=== PATIENT | female | born 1960 | race Caucasian/White ===

== ENCOUNTER → 2021-12-20 | Outpatient (CLI) | payer OTHER | END | disposition home or self-care (01) | LOC: EDBD → SHCH 07:48 | PROVIDERS: ATTEND Student in an Organized Health Care Education/Training Program | DX: I70.0 Atherosclerosis of aorta (principal) | CPT/HCPCS: 93978 ==

== ENCOUNTER → 2024-03-26 | Outpatient (CLI) | payer OTHER, MEDICARE | END | disposition home or self-care (01) | LOC: RAH 08:58 | PROVIDERS: ATTEND Obstetrics & Gynecology | DX: Z12.31 Encounter for screening mammogram for malignant neoplasm of breast (principal) | CPT/HCPCS: 77067 ==

== ENCOUNTER 2024-11-23 11:17 | Emergency (ER) | payer OTHER, MEDICARE ==
[~2024-11-23] VITALS: Ht 160 cm; Wt 65.8 kg
[2024-11-23 11:21] VITALS: BP 144/84; PULSE 82; RESP 20; TEMP 98.6
--- NOTE | 2024-11-23 11:42 | ERN ---
ED Note History of Present Illness Stated Complaint: TINGLING Chief Complaint: Back Pain or Injury Time Seen by MD: 11:20 Time Seen by Midlevel: 11:25 Dictation: 64-year-old female coming in complaining of mid left upper back pain radiating to her left arm and left leg. Patient states she feels shock going down her left leg. Patient states this all started in , has been to her PCP which they have given her Toradol injections and put her on p.o. prednisone for the last four days. States she does not feel any better, has a MRI scheduled for tomorrow. Denies any trauma, chest pain, shortness a breath, fever, chills, nausea, vomiting or diarrhea. Allergies: Coded Allergies: No Known Drug Allergies (Unverified Allergy, Unknown, 11/23/24) Home Meds Active Scripts Ketorolac Tromethamine (Ketorolac Tromethamine) 10 Mg Tablet, 1 TAB PO Q6HPRN PRN for pain for 5 Days, #20 TAB 0 Refills Prov:[facility] [employer] 11/23/24 Methocarbamol (Methocarbamol) 1,000 Mg Tablet, 1000 MG PO TID PRN for PAIN for 3 Days, #9 TAB Prov:GRAEME [facility] [employer] [employer] 11/23/24 Lidocaine (Lidocaine) 4 % Adh..patch, 1 PATCH TP DAILY for 10 Days, #10 PATCH 0 Refills Prov:[facility] 11/23/24 Past Medical History Past Medical History: High Cholesterol, Hypothyroid Surgical History: Appendectomy, Hysterectomy, Cholecystectomy, Other Surgical History Other: THYROID Review of System Dictation Constitutional: Negative for fever,chills, and weight loss Eyes: Negative for injury, pain,redness, and discharge ENT: Negative for injury,pain or swelling Cardiovascular: Negative for chest pain, palpitations, and edema Respiratory: Negative for shortness of breath, cough, and wheezing, Abdomen/GI: Negative for abdominal pain, nausea, vomiting, diarrhea, and constipation Back: Negative for injury and pain : Negative for injury, bleeding and discharge MS/Extremity: Negative for injury and deformity complaining of mid left back pain that radiates to her left arm and left leg Skin: Negative for rash, and discoloration Neuro: Negative for headache, weakness, numbness, tingling, and seizure Psych: Negative for suicide ideation, homicidal ideation, and hallucinations Review of Systems: was completed Initial Vital Sign VS Vital Signs Date Time Temp Pulse Resp B/P (MAP) Pulse Ox O2 Delivery O2 Flow Rate FiO2 11/23/24 11:21 98.6 82 20 144/84 100 Room Air 0 Physical Exam Dictation General: awake, alert, NAD Head/Face: Normocephalic, atraumatic Eyes: PERRL, EOMI, vision at baseline ENT: oral cavity clear, TMs clear, no signs of infection Neck: Trachea midline, supple, no nuchal rigidity Cardiovascular: RRR, normal S1/S2, No MRGs, no JVD Respiratory: CTAB, no respiratory distress, No rales or wheezes Abdomen: Soft, non-tender, non-distended, normal bowel sounds, no guarding or rebound. Skin: Warm, dry, normal turgor, no rash MS/Extremity: Pulses equal, no cyanosis, neurovascular intact, FROM Neuro: COAx4, GCS 15, strength 5/5, CN 2-12 intact, normal cerebellar exam, normal gait, Psych: Normal behavior, mood, and affect normal Results (Laboratory/Radiology) Laboratory/Radiology Laboratory Tests Test 11/23/24 11:45 White Blood Count 8.8 K/uL (4.8-10.8) Red Blood Count 4.36 MIL/uL (4.00-5.50) Hemoglobin 14.8 g/dL (12.0-16.0) Hematocrit 44.0 % (36-48) Mean Corpuscular Volume 100.9 fL (79-99) H Mean Corpuscular Hemoglobin 33.9 pg (27.0-33.0) H Mean Corpuscular Hemoglobin Concent 33.6 g/dL (32.0-36.0) Red Cell Distribution Width 12.4 % (11.0-15.5) Platelet Count 293 K/uL (130-400) Mean Platelet Volume 9.3 fL (7.5-10.5) Immature Granulocyte % (Auto) 0.3 % (0-1) Neutrophils (%) (Auto) 60.7 % (40.0-77.0) Lymphocytes (%) (Auto) 31.4 % (21.0-51.0) Monocytes (%) (Auto) 6.9 % (3.0-13.0) Eosinophils (%) (Auto) 0.5 % (0.0-8.0) Basophils (%) (Auto) 0.2 % (0.0-5.0) Neutrophils # (Auto) 5.4 K/uL (1.8-7.7) Lymphocytes # (Auto) 2.8 K/uL (1.0-4.8) Monocytes # (Auto) 0.6 K/uL (0.1-1.0) Eosinophils # (Auto) 0.04 K/uL (0.00-0.70) Basophils # (Auto) 0.02 K/uL (0.00-0.20) Absolute Immature Granulocyte (auto 0.03 K/uL (0-1) Nucleated Red Blood Cells 0.0 % (0.0-0.19) Sodium Level 142 mmol/L (136-145) Potassium Level 4.3 mmol/L (3.5-5.1) Chloride Level 107 mmol/L (101-111) Carbon Dioxide Level 25 mmol/L (21-32) Blood Urea Nitrogen 10 mg/dL (7-18) Creatinine 0.9 mg/dL (0.5-1.0) Glomerular Filtration Rate Calc 72 mL/min (>90) Random Glucose 113 mg/dL (70-105) H Total Calcium 8.4 mg/dL (8.5-10.1) L Troponin I High Sensitivity 5 ng/L (4-50) Labs Reviewed?: Yes EKG: (+) NSR, (+) WI (136), (+) QRS (47) ED Course ED Course Orders Procedure Category Date Status Time Cbc With Differential LAB 11/23/24 Complete 11:32 Basic Metabolic Panel LAB 11/23/24 Complete 11:32 Troponin I High LAB 11/23/24 Complete Sensitivity 11:32 12 Lead Ekg Tracing- EKG 11/23/24 Complete Technical 11:32 Chest 1vw RAD 11/23/24 Resulted 11:32 Lidocaine (Lidocaine PHA 11/23/24 Complete Patch 4%) 11:34 Hydrocodone/Apap PHA 11/23/24 Complete 5/325 ([place] 5/325mg) 11:34 Methocarbamol PHA 11/23/24 Complete (Methocarbamol) 11:34 Current Medications Medications (Trade) Dose Ordered Sig/[place] Route PRN Reason Start Time Stop Time Status Last Admin Dose Admin Acetaminophen/ Hydrocodone Bitart (NORco 5/325MG) 1 tab ONCE STAT PO 11/23/24 11:34 11/23/24 11:41 DC 11/23/24 11:48 Lidocaine (Lidocaine Patch 4%) 1 each ONCE STAT TP 11/23/24 11:34 11/23/24 11:41 DC 11/23/24 11:47 Methocarbamol (methoCARBamol) 1,000 mg ONCE STAT PO 11/23/24 11:34 11/23/24 11:41 DC 11/23/24 11:48 Vital Signs Date Time Temp Pulse Resp B/P (MAP) Pulse Ox O2 Delivery O2 Flow Rate FiO2 11/23/24 11:21 98.6 82 20 144/84 100 Room Air 0 Medical Decision Making MDM MDM: 64-year-old female coming in complaining of mid left upper back pain radiating to her left arm and left leg. Patient states she feels shock going down her left leg. Patient states this all started in , has been to her PCP which they have given her Toradol injections and put her on p.o. prednisone for the last four days. States she does not feel any better, has a MRI scheduled for tomorrow. Denies any trauma, chest pain, shortness a breath, fever, chills, nausea, vomiting or diarrhea.Patient has a leukocytosis, no anemia, no thrombocytopenia. Chemistry is unremarkable. Troponin is negative. EKGs did not show any ST elevations or dysrhythmias. Chest x-ray shows no acute findings. After pain medication patient states her pain went from an eight to a six and feels better. We will prescribe patient prescriptions for the muscle relaxer, Toradol, lidocaine patch. Educated patient to return to the ER if he has recurrent symptoms or worsening symptoms and to keep her appointment tomorrow with her MRI. Patient verbalized understanding, answered all questions. Differential diagnosis: ACS, pneumonia, chronic back pain Rationale: Tests considered and ordered secondary to shared decision making inc lude: Previous outside records reviewed: Old ER visits. Risk of complication and/or morbidity or mortality of patient management: None Medications-Per medication reconciliation Need for hospitalization: Patient does not meet criteria for hospitalization. Need for emergency major/minor surgery: No There are no social concerns with this patient. Prescription drug management Prescriptions will include symptomatic care Patient's prior external medical records from other ER visits were reviewed by me as indicated. Prior testing and results from previous visits were reviewed. Prior tests were taken into account with medical decision making and resource utilization, independent historian/historians were used to obtain complete medical history. I independently interpreted the test that were performed, results were reviewed by me and considered findings on radiology if ordered. Medical management and examination interpretation discussions were had by me with other qualified healthcare professionals as indicated for the patient's care. DX & DISP Disposition: Discharge Departure Impression: Primary Impression: Back pain Condition: Stable Scripts Ketorolac Tromethamine (Ketorolac Tromethamine) 10 Mg Tablet 1 TAB PO Q6HPRN PRN for pain for 5 Days, #20 TAB 0 Refills Prov: [facility] [employer] 11/23/24 Methocarbamol (Methocarbamol) 1,000 Mg Tablet 1000 MG PO TID PRN for PAIN for 3 Days, #9 TAB Prov: [facility] [employer] [employer] 11/23/24 Lidocaine (Lidocaine) 4 % Adh..patch 1 PATCH TP DAILY for 10 Days, #10 PATCH 0 Refills Prov: [facility] [employer] [employer] 11/23/24 Additional Instructions: Medications as prescribed, keep your appointment with your MRI tomorrow and follow up with your primary doctor in 1-2 days. You can return to the ER if you have any worsening symptoms. Referrals: CARLOTA LU MD (PCP) Time of Disposition: 13:13 I have reviewed the case, and I agree with, Diagnosis and Plan GRAEME PRESLEY NP Nov 23, 2024 11:42
[2024-11-23] MEDS: LIDOCAINE 4% ADH..PATCH TP STA (11:47)
[2024-11-23] MEDS: methoCARBamol 500 MG TABLET PO STA (11:48)
[2024-11-23] MEDS: HYDROcodone/APAP 5/325 1 TAB TABLET PO STA (11:48)
--- NOTE | 2024-11-23 11:55 | EKG ---
[facility] Test Date: 2024-11-23 Test Time: 11:37:35 Pat Name: JESSICA PERRY Department: ED Room: Gender: F Laborer High Density Press: [id number] : 1960 Requested By: GRAEME PRESLEY Order Number: [id number] Reading MD: Marnie Mcfarlane Measurements Intervals [place] Rate: 76 P: 55 [place]: 136 QRS: 47 QRSD: 91 T: 27 QT: 398 QTc: 447 Interpretive Statements Sinus rhythm No previous ECG available for comparison Electronically Signed On 11-24-2024 08:09:53 MANAGER POST by Marnie Mcfarlane Please click the below link to view image of tracing.
[2024-11-23 11:56] LABS: BASOPHILS # (AUTO) 0.02 K/uL (0.00-0.20); BASOPHILS % (AUTO) 0.2 % (0.0-5.0); EOSINOPHILS # (AUTO) 0.04 K/uL (0.00-0.70); EOSINOPHILS % (AUTO) 0.5 % (0.0-8.0); IMMATURE GRANULOCYTE ABSOLUTE 0.03 K/uL (0-1); LYMPHOCYTES # (AUTO) 2.8 K/uL (1.0-4.8); LYMPHOCYTES % (AUTO) 31.4 % (21.0-51.0); MEAN CORPUSCULAR HEMOGLOBIN 33.9 pg (27.0-33.0); MEAN CORPUSCULAR HGB CONC 33.6 g/dL (32.0-36.0); MEAN CORPUSCULAR VOLUME 100.9 fL (79-99); MONOCYTES # (AUTO) 0.6 K/uL (0.1-1.0); MONOCYTES % (AUTO) 6.9 % (3.0-13.0); NEUTROPHILS # (AUTO) 5.4 K/uL (1.8-7.7); NEUTROPHILS % (AUTO) 60.7 % (40.0-77.0); PLATELET COUNT (AUTO) 293 K/uL (130-400); RED BLOOD CELL COUNT(AUTO) 4.36 MIL/uL (4.00-5.50); RED CELL DISTRIBUTION WIDTH 12.4 % (11.0-15.5); WHITE BLOOD COUNT (AUTO) 8.8 K/uL (4.8-10.8)
[2024-11-23 12:02] LABS: CREATININE 0.9 mg/dL (0.5-1.0); POTASSIUM 4.3 mmol/L (3.5-5.1)
--- NOTE | 2024-11-23 12:29 | HMCIMG ---
CHEST 1VW HISTORY: Chest pain COMPARISON: None FINDINGS: A frontal projection of the chest was obtained. No acute pulmonary infiltrates is seen. The heart is borderline enlarged. Degenerative changes are seen. Prominent interstitial markings are seen. IMPRESSION: 1. No acute pulmonary infiltrate is seen.
[2024-11-23] MEDS ORDERED: LIDO1ADH82 TP (13:18)
[2024-11-23] MEDS ORDERED: METH100054 PO (13:18)
[2024-11-23] MEDS ORDERED: KETO10TA2 PO (13:18)
== END 2024-11-23 13:47 | disposition home or self-care (01) ==
LOC: EDH 11:17
DX: M54.6 Pain in thoracic spine (principal); E03.9 Hypothyroidism, unspecified; E78.00 Pure hypercholesterolemia, unspecified; Z90.49 Acquired absence of other specified parts of digestive tract; Z90.710 Acquired absence of both cervix and uterus; Z79.899 Other long term (current) drug therapy
CPT/HCPCS: 36415; 71045; 80048; 84484; 85025; 93005; 99285

== ENCOUNTER → 2024-11-24 | Outpatient (CLI) | payer OTHER, MEDICARE ==
[~2024-11-24] MED LIST: KETO10TA2 PO; LIDO1ADH82 TP; METH100054 PO
--- NOTE | 2024-11-24 10:07 | HMCIMG ---
MR SPINAL CANAL, THORAC WO CON HISTORY: Pain COMPARISON: None TECHNIQUE: MRI of the thoracic spine was performed utilizing multiple pulse sequences in axial, coronal and sagittal plane. Patient was not given contrast through intravenous route. FINDINGS: No abnormal signal intensity is seen of the visualized bony structure. No loss of vertebral height is seen. Degenerative disc signals are present at all thoracic spine levels. The thoracic cord is of normal signal intensity without cord compression or impingement. There are thoracic spine spondylosis. There may be minimal scoliosis. No focal disc herniation or neural foraminal stenosis is seen. IMPRESSION: 1. Mild degenerative changes. No focal disc herniation or neural foraminal stenosis is seen.
== END | disposition home or self-care (01) ==
LOC: RAH 08:51
DX: M47.814 Spondylosis without myelopathy or radiculopathy, thoracic region (principal); M41.9 Scoliosis, unspecified; M47.894 Other spondylosis, thoracic region; M54.6 Pain in thoracic spine
CPT/HCPCS: 72146

== ENCOUNTER → 2025-03-09 | Outpatient (CLI) | payer OTHER, MEDICARE ==
--- NOTE | 2025-03-09 15:24 | HMCIMG ---
Bilateral BREAST ULTRASOUND: HISTORY: Pain COMPARISON: None FINDINGS: The breast and axilla were evaluated. No cysts or solid masses are identified. Bilateral breast implants are seen. Impression: Benign bilateral breast ultrasound. Routine screening mammogram in 1 year recommended after the age of 40. BI-RADS: CATEGORY 2: BENIGN FINDINGS Note: A negative x-ray should not delay biopsy if a dominant or clinically suspicious mass is present, since 8-10% of cancers are not identified by mammography. Dense breasts particularly, may obscure an underlying neoplasm. Thank you for allowing me to participate in this patient's care. If I can be of further assistance, please do not hesitate to call. A negative report should not delay biopsy if a clinically suspicious mass is present. Some cancers are not identified by imaging studies.
== END | disposition home or self-care (01) ==
LOC: RAH 14:51
PROVIDERS: ATTEND Obstetrics & Gynecology
DX: N64.4 Mastodynia (principal)
CPT/HCPCS: 76641

== ENCOUNTER → 2025-03-14 | Outpatient (CLI) | payer OTHER, MEDICARE ==
--- NOTE | 2025-03-14 12:52 | HMCIMG ---
SCOLIOSIS 1VW REASON: RADICULOPATHY, CERVICAL REGION, THORACIC Pain, segmental AND SOMATIC DYS FUNT. COMPARISON: None TECHNIQUE: Scoliosis series was obtained. FINDINGS: There is dextroscoliosis with scoliotic angle of 40 weeks. No loss of vertebral height is seen. IMPRESSION: Dextroscoliosis.
--- NOTE | 2025-03-14 12:53 | HMCIMG ---
CERV SPINE 4-5 VWS REASON: RADICULOPATHY, CERVICAL REGION. COMPARISON: None TECHNIQUE: 6 images of cervical spine were obtained. FINDINGS: There is straightening of normal lordotic cervical curvature which may be related to muscle spasm or positioning. Surgical suly are seen in the neck region. There is no fracture or dislocation. No loss of vertebral height is seen. IMPRESSION: No fracture is seen.
== END | disposition home or self-care (01) ==
LOC: RAH 08:46
PROVIDERS: ATTEND Physical Medicine & Rehabilitation
DX: M41.80 Other forms of scoliosis, site unspecified (principal); M54.12 Radiculopathy, cervical region; M99.02 Segmental and somatic dysfunction of thoracic region; M41.9 Scoliosis, unspecified; M54.6 Pain in thoracic spine; R29.2 Abnormal reflex
CPT/HCPCS: 72050; 72081

== ENCOUNTER → 2025-04-12 | Outpatient (CLI) | payer OTHER, MEDICARE ==
--- NOTE | 2025-04-12 10:51 | HMCIMG ---
MRI OF THE CERVICAL SPINE WITHOUT GADOLINIUM Technique: Sagittal T1 and T2 FSE, Sagittal STIR and Sagittal proton density images were completed through the cervical spine. Axial T1, T2 and proton density images were also acquired. FINDINGS: Examination shows adequate alignment of the vertebral bodies of the cervical spine. No fractures or dislocations are identified. Vertebral body height and disc height is preserved at all levels. The bone marrow signal is normal for age. The spinal canal contents are preserved. The paraspinal muscles and other tissues show no significant abnormalities. Evaluation of the cervical spine by level: C1-C2: There is no spinal canal stenosis. No disc herniation or bulge is noted. There is no neural foraminal stenosis, impingement, or narrowing. C2-C3: There is no spinal canal stenosis. No disc herniation or bulge is noted. There is no neural foraminal stenosis, impingement, or narrowing. C3-C4: There is no spinal canal stenosis. No disc herniation or bulge is noted. There is no neural foraminal stenosis, impingement, or narrowing. C4-C5: There is no spinal canal stenosis. No disc herniation or bulge is noted. There is no neural foraminal stenosis, impingement, or narrowing. C5-C6: There is no spinal canal stenosis. No disc herniation or bulge is noted. There is no neural foraminal stenosis, impingement, or narrowing. C6-C7: There is no spinal canal stenosis. Mild central posterior disc bulge is noted. There is no neural foraminal stenosis, impingement, or narrowing. C7-T1: There is no spinal canal stenosis. No disc herniation or bulge is noted. There is no neural foraminal stenosis, impingement, or narrowing. Impression: There is no evidence of significant spinal canal stenosis or neural foraminal stenosis. Mild central posterior disc bulge noted at C6-7. There are no bone marrow signal abnormalities to suggest fracture, neoplastic disease, or infection.
== END | disposition home or self-care (01) ==
LOC: RAH 09:39
PROVIDERS: ATTEND Physical Medicine & Rehabilitation
DX: M50.123 Cervical disc disorder at C6-C7 level with radiculopathy (principal); R29.2 Abnormal reflex
CPT/HCPCS: 72141

== ENCOUNTER → 2025-04-13 | Outpatient (CLI) | payer OTHER, MEDICARE ==
--- NOTE | 2025-04-13 10:21 | HMCIMG ---
MAMMO SCREENING IMPLANT HISTORY: Screening mammogram. COMPARISON: 03/26/2024 TECHNIQUE: Bilateral screening mammogram with CAD was performed with craniocaudal and mediolateral oblique projections. Additional pushback views were obtained. FINDINGS: There are scattered areas of fibroglandular density. There are bilateral breast implants. There is no evidence of a dominant mass, or suspicious microcalcification. There is no evidence of nipple retraction or skin thickening. IMPRESSION: 1. Stable mammogram. Patient was entered into a reminder system with a target due date for their next mammogram. BI-RADS: CATEGORY 2: BENIGN FINDINGS Recommend monthly self breast exam as well as annual clinical examination. A negative x-ray should not delay biopsy if a dominant or clinically suspicious mass is present, since 8-10% of cancers are not identified by mammography. Dense breasts particularly, may obscure an underlying neoplasm. Some of these may be detected clinically and therefore, clinical examination is an essential part of breast evaluation.
== END | disposition home or self-care (01) ==
LOC: RAH 09:57
PROVIDERS: ATTEND Obstetrics & Gynecology
DX: Z12.31 Encounter for screening mammogram for malignant neoplasm of breast (principal); R92.323 Mammographic fibroglandular density, bilateral breasts; Z98.82 Breast implant status
CPT/HCPCS: 77067

== ENCOUNTER → 2025-06-07 | Outpatient (CLI) | payer OTHER, MEDICARE ==
--- NOTE | 2025-06-07 18:13 | HMCIMG ---
EXAM: CR left Knee, 3 View. CLINICAL HISTORY: PAIN IN LEFT KNEE,CHRONIC COMPARISON: None provided. FINDINGS: BONES: No acute fracture or aggressive appearing osseous lesion. JOINTS: The joint spaces show no significant degenerative disease. There is no joint effusion appreciated. SOFT TISSUES: The soft tissues are unremarkable. IMPRESSION: No acute osseous pathology evident. /[place]
== END | disposition home or self-care (01) ==
LOC: RAH 11:54
PROVIDERS: ATTEND Nurse Practitioner Family
DX: M25.562 Pain in left knee (principal)
CPT/HCPCS: 73562